=== PATIENT | female | born 1950 | race Caucasian/White ===

== ENCOUNTER → 2018-11-25 14:31 | Outpatient (CLI) | payer MEDICARE, OTHER ==
[2018-11-25 16:30] LABS: ALBUMIN 3.5 g/dL (3.4-5.0); ALKALINE PHOSPHATASE 95 U/L (46-116); ALT (SGPT) 14 U/L (10-68); BILIRUBIN - TOTAL 0.41 mg/dL (0.2-1.3); CALC OSMOLALITY 276 mosm/kg (275-300); CHLORIDE - SERUM 102 mmol/L (98-107); CREATININE - SERUM 0.7 mg/dL (0.6-1.3); GLUCOSE 82 mg/dL (74-106); POTASSIUM - SERUM 3.8 mmol/L (3.5-5.1); PROTEIN - SERUM 7.3 g/dL (6.4-8.2); SODIUM 140 mmol/L (136-145); UREA NITROGEN 9 mg/dL (7-18); eGFR NON AFRICAN AMERICAN 88 mL/min (90-120)
[2018-11-26 11:21] LABS: ANA REFLEX - DIRECT Negative (Negative)
== END | disposition home or self-care (01) ==
LOC: D.LAB 14:31
PROVIDERS: ATTEND Psychiatry & Neurology Neurology
DX: G62.9 Polyneuropathy, unspecified (principal)

== ENCOUNTER → 2019-02-17 10:44 | Outpatient (CLI) | payer MEDICARE, OTHER ==
[2019-02-18 05:11] LABS: VITAMIN D 25 HYDROXY 42.8 ng/mL (30.0-100.0)
[2019-02-19 12:15] LABS: ANGIOTENSIN CONVERTING ENZYME < 15 U/L (14-82)
== END | disposition home or self-care (01) ==
LOC: D.RT 10:44
PROVIDERS: ATTEND Internal Medicine Pulmonary Disease
DX: D86.0 Sarcoidosis of lung (principal)

== ENCOUNTER 2019-05-05 08:00 | Outpatient (CLI) | payer MEDICARE, OTHER | END 2019-05-05 08:30 | disposition home or self-care (01) | LOC: D.MAMMO 08:00 | PROVIDERS: ATTEND Family Medicine | DX: Z12.31 Encounter for screening mammogram for malignant neoplasm of breast (principal) ==

== ENCOUNTER → 2019-06-24 14:03 | Outpatient (CLI) | payer MEDICARE, OTHER | END | disposition home or self-care (01) | LOC: D.CT 06-23 11:30 | PROVIDERS: ATTEND Internal Medicine Pulmonary Disease | DX: D86.9 Sarcoidosis, unspecified (principal) ==

== ENCOUNTER 2020-03-06 12:39 | Inpatient (IN) | payer MEDICARE, OTHER ==
[~2020-03-06] VITALS: Ht 157.5 cm; Wt 104.3 kg
[2020-03-06] MEDS ORDERED: PREDNISONE5 MG PO (12:45)
[2020-03-06] MEDS ORDERED: GABAPENTIN300 MG PO (12:45)
[2020-03-06] MEDS ORDERED: [UNRECOGNIZED DRUG - OTHER] PO (12:46)
[2020-03-06] MEDS ORDERED: LISINOPRIL20 MG PO (12:47)
[2020-03-06] MEDS ORDERED: REQUIP3 MG PO (12:47)
[2020-03-06] MEDS ORDERED: ZOFRAN4 MG PO (12:48)
[2020-03-06] MEDS ORDERED: OMEPRAZOLE20 M1 PO (12:48)
[2020-03-06] MEDS ORDERED: ADVAIR 250-501 EAC1 INH (12:48)
[2020-03-06] MEDS ORDERED: VITAMIN B-121000 MCG (12:48)
[2020-03-06] MEDS ORDERED: ALBUTEROL SULF8.5 GM INH (12:49)
[2020-03-06 13:29] LABS: BILIRUBIN NEGATIVE (NEGATIVE); GLUCOSE NEGATIVE (NEGATIVE); KETONE LARGE mg/dL (NEGATIVE); NITRITE NEGATIVE (NEGATIVE); SPECIFIC GRAVITY 1.005 (1.005-1.020); UROBILINOGEN NORMAL (NORMAL)
[2020-03-06 13:38] LABS: BASOPHILS 0.2 % (0-2); EOSINOPHILS 0.1 % (0-7); HEMATOCRIT 47.1 % (36.0-48.0); HEMOGLOBIN 15.6 g/dL (12-16); IMMATURE GRANULOCYTES 0.5 % (0-5); LYMPHOCYTES 4.6 % (15-50); MCH 32.2 pg (26.0-34.0); MCHC 33.1 g/dL (31.0-37.0); MCV 97.1 fL (80.0-100.0); MEAN PLATELET VOLUME 9.6 fL (7.4-10.4); MONOCYTES 3.2 % (2-11); NEUTROPHILS 91.4 % (40-80); PLATELET COUNT 285 10x3/uL (130-400); RBC 4.85 10x6/uL (4.00-5.40); RDW 14.3 % (11.5-14.5); WBC 9.6 10x3/uL (4.8-10.8)
[2020-03-06 13:46] LABS: ANION GAP 13.9 mmol/L (8-16); CALCIUM 9.2 mg/dL (8.5-10.1); CREATININE - SERUM 0.9 mg/dL (0.6-1.3); POTASSIUM - SERUM 3.9 mmol/L (3.5-5.1)
[2020-03-06 13:52] LABS: ALBUMIN 3.4 g/dL (3.4-5.0); BILIRUBIN - TOTAL 1.37 mg/dL (0.2-1.3); PROTEIN - SERUM 7.7 g/dL (6.4-8.2)
--- NOTE | 2020-03-06 14:40 | NUR ---
PT REPORTS THAT TORADOL DID NOT ALLEVIATE PAIN AT ALL.
[2020-03-06 16:07] VITALS: BP 182/88
--- NOTE | 2020-03-06 16:40 | NUR ---
reports called to socrates becerra at this time.
--- NOTE | 2020-03-06 19:46 | NUR ---
PATIENT C/O NAUSEA. AT BEDSIDE. EXPLAINED TO THE PATIENT AND ABOUT HER ZOFRAN DRIP. ALSO EXPLAINED THAT THE PATIENT HAS PHENERGAN ORDERED IF NEEDED, HOWEVER, IT IS NOT AVAILABLE UNTIL 10PM. PATIENT AND VERBALIZED UNDERSTANDING. PATIENT DENIES OTHER NEEDS AT THIS TIME. BED IN LOWEST POSITION AND CALL LIGHT WITHIN REACH. ENCOURAGED THE PATIENT TO CALL IF SHE HAS NEEDS. WILL CONTINUE TO MONITOR.
[2020-03-06 20:00] VITALS: BP 154/84
[2020-03-06 21:29] VITALS: BP 160/77; BMI 42.1
[2020-03-07] VITALS: BP 110/60
[2020-03-07 04:00] VITALS: BP 126/62
[2020-03-07 05:00] LABS: BASOPHILS 0.1 % (0-2); EOSINOPHILS 0.1 % (0-7); HEMOGLOBIN 12.8 g/dL (12-16); IMMATURE GRANULOCYTES 0.6 % (0-5); LYMPHOCYTES 7.1 % (15-50); MCH 31.3 pg (26.0-34.0); MCV 97.8 fL (80.0-100.0); MEAN PLATELET VOLUME 9.5 fL (7.4-10.4); MONOCYTES 10.4 % (2-11); NEUTROPHILS 81.7 % (40-80); PLATELET COUNT 305 10x3/uL (130-400); RBC 4.09 10x6/uL (4.00-5.40); RDW 14.7 % (11.5-14.5); WBC 7.2 10x3/uL (4.8-10.8)
[2020-03-07 05:33] LABS: ALBUMIN 2.8 g/dL (3.4-5.0); ANION GAP 8.8 mmol/L (8-16); BILIRUBIN - TOTAL 0.94 mg/dL (0.2-1.3); CALCIUM 8.2 mg/dL (8.5-10.1); CARBON DIOXIDE 29.2 mmol/L (21.0-32.0); MAGNESIUM - SERUM 1.8 mg/dL (1.8-2.4); PROTEIN - SERUM 6.4 g/dL (6.4-8.2)
[2020-03-07 08:27] VITALS: BP 129/70
[2020-03-07 12:41] VITALS: BP 107/53
[2020-03-07 15:11] VITALS: Ht 157.5 cm; Wt 104.3 kg
[2020-03-07 16:46] VITALS: BP 92/65
[2020-03-07 20:00] VITALS: BP 128/65
--- NOTE | 2020-03-07 20:02 | NUR ---
PATIENT RESTING IN BED WITH NO S/S OF DISTRESS AND DENIES NEEDS AT THIS TIME. BED IN LOWEST POSITION AND CALL LIGHT WITHIN REACH. ENCOURAGED THE PATIENT TO CALL IF SHE HAS NEEDS. WILL CONTINUE TO MONITOR.
--- NOTE | 2020-03-07 21:08 | NUR ---
ADMINISTERED MEDS PER ORDERS. PATIENT DENIES NEEDS. PATIENT DENIES NAUSEA. WILL CONTINUE TO MONITOR.
[2020-03-08] VITALS: BP 101/47
[2020-03-08 04:00] VITALS: BP 110/58
[2020-03-08 06:52] LABS: BASOPHILS 0.4 % (0-2); EOSINOPHILS 1.7 % (0-7); HEMATOCRIT 37.3 % (36.0-48.0); HEMOGLOBIN 11.8 g/dL (12-16); IMMATURE GRANULOCYTES 0.4 % (0-5); LYMPHOCYTES 14.7 % (15-50); MCH 30.9 pg (26.0-34.0); MCHC 31.6 g/dL (31.0-37.0); MCV 97.6 fL (80.0-100.0); MEAN PLATELET VOLUME 9.2 fL (7.4-10.4); NEUTROPHILS 74.8 % (40-80); PLATELET COUNT 245 10x3/uL (130-400); RBC 3.82 10x6/uL (4.00-5.40)
[2020-03-08 06:56] LABS: WBC 5.2 10x3/uL (4.8-10.8)
[2020-03-08 07:11] LABS: ALBUMIN 2.6 g/dL (3.4-5.0); ANION GAP 9.9 mmol/L (8-16); BILIRUBIN - TOTAL 0.5 mg/dL (0.2-1.3); CALCIUM 7.9 mg/dL (8.5-10.1); CARBON DIOXIDE 25.7 mmol/L (21.0-32.0); CREATININE - SERUM 0.9 mg/dL (0.6-1.3); MAGNESIUM - SERUM 1.8 mg/dL (1.8-2.4); PHOSPHOROUS 3.2 mg/dL (2.5-4.9); POTASSIUM - SERUM 3.6 mmol/L (3.5-5.1); PROTEIN - SERUM 5.7 g/dL (6.4-8.2)
--- NOTE | 2020-03-08 08:30 | NUR ---
PATIENT AWAKE AND ALERT. REQUESTING HELP WITH BED. I ASSISTED. CL IN REACH. NO FURTHER NEEDS AT THIS TIME. WCTM
[2020-03-08 08:41] VITALS: BP 107/51
[2020-03-08] MEDS ORDERED: PROTONIX40 MG PO (10:37)
[2020-03-08] MEDS ORDERED: LEVOFLOXACIN500 MG PO (10:37)
[2020-03-08] MEDS ORDERED: FLAGYL500 MG PO (10:38)
[2020-03-08] MEDS ORDERED: ZOFRAN ODT4 MG/UDTAB PO (10:39)
[2020-03-08 12:07] VITALS: BP 118/56
--- NOTE | 2020-03-08 12:10 | MORECARE ---
CASE MANAGEMENT DISCHARGE SUMMARY PATIENT: DILLON MORENO UNIT: [id number] ADM DATE: 03/06/20 AGE: 69 : 49 SEX: F ROOM/BED: D.2205 AUTHOR: ALANA SANCHEZ PHYSICIAN: REFERRING PHYSICIAN: YESENIA ALVAREZ MD DATE OF SERVICE: 03/08/20 Discharge Plan Patient Name: DILLON MORENO [facility] [facility] 1950 Planned Disposition: Home or Self Care Anticipated Discharge Date: Discharge Date: Expected LOS: Initial Reviewer: [email or web address] Initial Review Date: 03/06/2020 Generated: 03/08/20 1:09 pm DCPIA - Discharge Planning Initial Assessment Updated by [email or web address]: Tiffany Swartz on 03/08/20 12:08 pm * Is the patient Alert and Oriented? Yes * PCP BENEDICTO * Pharmacy [facility] [place] * Preadmission Environment Home with Family * ADLs Independent * Equipment Walker * List name and contact numbers for known caregivers / representatives who currently or will assist patient after discharge: SHELDON [phone] * Verbal permission to speak to the caregivers and representatives has been obtained from the patient. N/A * Community resources currently utilized None * Additional services required to return to the preadmission environment? No * Can the patient safely return to the preadmission environment? Yes * Has this patient been hospitalized within the prior 30 days at any hospital? No Patient Name: DILLON MORENO Page 16926 at 1210 All edits/amendments must be made on the electronic document DICTATION DATE: 03/08/20 1209 QUALITY ENG: FARIDA 03/08/20 1209 RPT#: [id number] DC DATE: STATUS: ADM IN [facility] [address] [place] [address] END OF REPORT
--- NOTE | 2020-03-08 12:19 | MORECARE ---
CASE MANAGEMENT DISCHARGE SUMMARY PATIENT: DILLON MORENO UNIT: [id number] ADM DATE: 03/06/20 AGE: 69 : 49 SEX: F ROOM/BED: D.2205 AUTHOR: LAURADOC PHYSICIAN: REFERRING PHYSICIAN: YESENIA ALVAREZ MD DATE OF SERVICE: 03/08/20 Discharge Plan Patient Name: DILLON MORENO Facility: [facility]:[place] : 1950 Planned Disposition: Home or Self Care Anticipated Discharge Date: Discharge Date: Expected LOS: Initial Reviewer: [email or web address] Initial Review Date: 03/06/2020 Generated: 03/08/20 1:18 pm Comments DCP- Discharge Planning Updated by [email or web address]: Tiffany Swartz on 03/08/20 11:[address] Patient Name: DILLON MORENO Admission Status: ER Accout number: [id number] Admission Date: 03-06-2020 : 1950 Admission Diagnosis:CONSTIPATION, UNSPECIFIED Attending: ANTONIO, Current LOS: 2 Anticipated DC Date: Planned Disposition: Home or Self Care Primary Insurance: MEDICARE A & B Discharge Planning Comments: CM met with patient to complete initial dc planning assessment. CM educated patient on the CM role and verbal consent given by patient to complete assessment. Patient lives at home with her spouse where she is independent with her care. At discharge patient plans to return home and feels this is a safe discharge. 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 CM discussed availability of home health, rehab services, and medical equipment. She has a walker that she uses when she is out of her house. Patient denied known discharge needs at this time. CM will continue to follow and will assist as needed with dc plans/needs. Destination Sign Repairer: Tiffany Swartz DCPIA - Discharge Planning Initial Assessment Updated by [email or web address]: Tiffany Swartz on 03/08/20 12:08 pm * Is the patient Alert and Oriented? Yes * PCP BENEDICTO * Pharmacy [facility] [place] * Preadmission Environment Home with Family * ADLs Independent * Equipment Walker * List name and contact numbers for known caregivers / representatives who currently or will assist patient after discharge: SHELDON [phone] * Verbal permission to speak to the caregivers and representatives has been obtained from the patient. N/A * Community resources currently utilized None * Additional services required to return to the preadmission environment? No * Can the patient safely return to the preadmission environment? Yes * Has this patient been hospitalized within the prior 30 days at any hospital? No Last DP export: 03/08/20 11:10 a Patient Name: DILLON MORENO Page [phone] at 1219 All edits/amendments must be made on the electronic document DICTATION DATE: 03/08/208 SAP BI ARCHITECT: FARIDA 03/08/208 RPT#: [id number] DC DATE: STATUS: ADM IN [facility] [address] [place] [address] END OF REPORT
--- NOTE | 2020-03-08 14:18 | NUR ---
IV REMOVED FROM LEFT WRIST WITH TIP INTACT. PATIENT DC HOME WITH ALL BELONGINGS.
--- NOTE | 2020-03-09 09:57 | MORECARE ---
CASE MANAGEMENT DISCHARGE SUMMARY PATIENT: DILLON MORENO UNIT: [id number] ADM DATE: 03/06/20 AGE: 69 : 49 SEX: F ROOM/BED: D.2205 AUTHOR: LAURADOC PHYSICIAN: REFERRING PHYSICIAN: YESENIA ALVAREZ MD DATE OF SERVICE: 03/09/20 Discharge Plan Patient Name: DILLON MORENO Facility: [facility]:[place] : 1950 Planned Disposition: Home or Self Care Anticipated Discharge Date: Discharge Date: 03/08/2020 Expected LOS: Initial Reviewer: [email or web address] Initial Review Date: 03/06/2020 Generated: 03/09/20 10:56 am Comments DCP- Discharge Planning Updated by [email or web address]: Tiffany Swartz on 03/08/20 11:[address] Patient Name: DILLON MORENO Admission Status: ER Accout number: [id number] Admission Date: 03-06-2020 : 1950 Admission Diagnosis:CONSTIPATION, UNSPECIFIED Attending: ANTONIO, Current LOS: 2 Anticipated DC Date: Planned Disposition: Home or Self Care Primary Insurance: MEDICARE A & B Discharge Planning Comments: CM met with patient to complete initial dc planning assessment. CM educated patient on the CM role and verbal consent given by patient to complete assessment. Patient lives at home with her spouse where she is independent with her care. At discharge patient plans to return home and feels this is a safe discharge. 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 CM discussed availability of home health, rehab services, and medical equipment. She has a walker that she uses when she is out of her house. Patient denied known discharge needs at this time. CM will continue to follow and will assist as needed with dc plans/needs. User Interface Developer: Tiffany Swartz DCPIA - Discharge Planning Initial Assessment Updated by [email or web address]: Tiffany Swartz on 03/08/20 12:08 pm * Is the patient Alert and Oriented? Yes * PCP BENEDICTO * Pharmacy [facility] [place] * Preadmission Environment Home with Family * ADLs Independent * Equipment Walker * List name and contact numbers for known caregivers / representatives who currently or will assist patient after discharge: SHELDON [phone] * Verbal permission to speak to the caregivers and representatives has been obtained from the patient. N/A * Community resources currently utilized None * Additional services required to return to the preadmission environment? No * Can the patient safely return to the preadmission environment? Yes * Has this patient been hospitalized within the prior 30 days at any hospital? No Last DP export: 03/08/20 11:19 a Patient Name: DILLON MORENO Page 46560 at 0957 All edits/amendments must be made on the electronic document DICTATION DATE: 03/09/20955 MANAGER FASHION: DM 03/09/2056 RPT#: [id number] DC DATE:03/08/20 STATUS: DIS IN [facility] [address] [place] [address] END OF REPORT
== END 2020-03-08 16:04 | disposition home or self-care (01) | DRG 392 ==
LOC: D.ER 12:39 → D.MS 16:18 → D.SDCHOLD 03-07 13:39 → D.MS 03-07 13:39
PROVIDERS: Family Medicine; ADMIT Family Medicine; ATTEND Family Medicine
DX: K57.92 Diverticulitis of intestine, part unspecified, without perforation or abscess without bleeding (principal); K59.00 Constipation, unspecified; K21.9 Gastro-esophageal reflux disease without esophagitis; G62.9 Polyneuropathy, unspecified; G25.81 Restless legs syndrome; J45.909 Unspecified asthma, uncomplicated

== ENCOUNTER 2020-03-12 03:20 | Inpatient (IN) | payer MEDICARE, OTHER ==
[~2020-03-12] VITALS: Ht 157.5 cm; Wt 104.3 kg
--- NOTE | ~2020-03-12 | HEMODYNAMI ---
PATIENT:DILLON MORENO MEDICAL RECORD: [id number] : [birth year] LOCATION:[facility].2216 ADMISSION DATE: 03/12/20 Generatedon:03/13/202010:49 Patient name: DILLON MORENO Patient #: [id number] SSN: DO B: 1950 Date of study: 03/13/2020 Page: Of Hemodynamic Procedure Report Patient Data Patient Demographics Procedure consent was obtained First Name: DILLON Gender: Female Last Name: TIFFANIE : 1950 Patient #: [id number] Age: 69 year(s) Race: Unknown Additional ID: [id number] Contact details [address]: [address] [place] [address] State: [place] City: [place] Zip code: [address] Past Medical History Allergies Allergen Reaction Date Comments Reported Sulfa drugs 03/13/2020 Admission Admission Data Admission Date: 03/12/2020 Admission Time: 12:55 Room #: D.2216 Lab Results Lab Result Date: 03/13/2020 Lab Result Time: 0:00 Biochemistry Name Units Result Min Max Creatinine mg/dl 1 --(--*-)-- 0.6 1.3 CBC Name Units Result Min Max Hematocrit % 39 *-(----)-- 42 54 Hemoglobin g/dl 12 *-(----)-- 13.5 17.5 Procedure Procedure Types Cath Procedure Diagnostic Procedure LHC C w/Coronaries Procedure Description Procedure Date Procedure Date: 03/13/2020 Procedure Start Time: 10:36 Procedure End Time: 10:47 Procedure Staff Name Function Rocky Coburn MD Performing Physician Ana Canas RT Monitor Martine Eaton RT Monitor Deja Alegre RT Scrub Gauri Reyes RN Nurse Procedure Data Cath Procedure Fluoroscopy Diagnostic fluoroscopy Total fluoroscopy Time: 1.1 time: 1.1 min min Diagnostic fluoroscopy Total fluoroscopy dose: 429 dose: 429 mGy mGy Contrast Material Contrast Material Type Amount (ml) Isovue 300 52 Entry Location Entry Primary Successful Side Size Upsize Upsize Entry Closure Succes sful Closure Location (Fr) 1 (Fr) 2 (Fr) Remarks Device Remarks Femoral Right 5 Fr Exoseal artery Estimated blood loss: 10 ml Diagnostic catheters Device Type Used For End Catheter Placement MULTIPACK JL 4.0 5Fr Procedure catheter MULTIPACK 3DRC 5Fr Procedure catheter MULTIPACK Pigtail 5 Fr Ventriculography catheter Procedure Complications No complications Procedure Medications Medication Administration Route Dosage 0.9% NaCl I.V. 100 ml/hr Oxygen etCO2 Nasal cannula 2 l/min Lidocaine 2% added to field 20 Heparin Flush Bag added to field 2 bags (1000units/500ml NS) Versed I.V. 2 mg Fentanyl I.V. 50 mcg Fentanyl I.V. 50 mcg Hemodynamics Rest Heart Rate: 0 (bpm) Pressure Samples Time Site Value (mmHg) Purpose Heart Use Rate(bpm) 10:42 LV 140/15,15 Snapshot 89 10:43 AO 150/80(114) Pullback 89 Gradients Valve Time Site Site 2 Mean SEP/DFP Peak To Heart Use 1 (mmHg) (sec/min) Peak Rate (mmHg) (bpm) Aortic 10:43 LV AO 89 150/80(114) Snapshots Pre Cath Intra NCS Post Cath Vital Signs Time Heart Resp SPO2 etCO2 NIBP (mmHg) Rhythm Pain Sedation Rate (ipm) (%) (mmHg) Status Level (bpm) 10:27:08 101 11 98 45.5 155/81(119) NSR 0 (11) 10(A) , No pain 10:31:40 98 20 97 35.8 143/85(119) NSR 0 (11) 10(A) , No pain 10:36:07 90 19 97 44.1 140/83(126) NSR 0 (11) 10(A) , No pain 10:40:33 85 13 98 41 143/79(109) NSR 0 (11) 10(A) , No pain 10:44:59 88 13 96 0 150/85(126) NSR 0 (11) 10(A) , No pain Medications Time Medication Route Dose Verified Delivered Reason Notes Eff ectiveness by by 10:24:01 0.9% NaCl I.V. 100 Rocky Chesteryla used for ml/hr IrishJanusz Reyes procedure MD DONAHUE 10:24:07 Oxygen etCO2 2 Rocky Gauri used for Nasal l/min [facility] procedure cannula MD RN 10:24:13 Lidocaine 2% added 20ml Rocky Hidalgo for local to vial [facility] anesthetic field MD CASTILLO 10:24:17 Heparin Flush added 2 Rocky Hidalgo used for Bag to bags [facility] procedure (1000units/500ml field MD CASTILLO NS) 10:34:36 Versed I.V. 2 mg Rocky Gauri for IrishJanusz Reyes sedation RN 10:34:46 Fentanyl I.V. 50 Rocky Gauri for [facility] Eric sedation RN 10:40:10 Fentanyl I.V. 50 Rocky Gauri for [facility] sedation welding machine operator resistance Log Time Note 9:59:59 Informed consent obtained and on chart 10:00:12 Procedure Status Urgent Heart Cath (IP). 10:00:18 Ana Canas RT(R) sent for patient. Start room use. 10:00:19 Time tracking: Regular hours (M-F 7:00 - 5:00) 10:00:22 Plan of Care:Hemodynamics will remain stable., Cardiac rhythm will remain stable., Comfort level will be maintained., Respiratory function will remain adequate., Patient/ family verbilizes understanding of procedure., Procedure tolerated without complication., Recovers from procedure without complications.. 10:18:27 Patient received from Med/Surg to CCL 1 Alert and oriented. Tansferred to table in Supine position. 10:19:08 H&P Date Dictated: 03/13/2020 Within 30 days and on chart.. 10:19:19 ACC Patient presents with Unstable Angina CCS Anginal Class 2--Slight limitation of ordinary activity. 10:19:23 ACCPatient has been prescribed/administered the following anti-anginal medication within the last 2 weeks: None 10:19:27 Full Disclosure recording started 10:19:32 Warm blankets applied, and jenny hugger turned on for patient comfort. 10:19:32 Correct patient and procedure confirmed by team. 10:19:34 ECG and BP/O2 sat monitors applied to patient. 10:19:35 Pre-procedure instructions explained to patient. 10:19:36 Pre-op teaching completed and patient verbalized understanding. 10:19:43 Family in waiting room. 10:19:45 Patient NPO since Midnight. 10:19:54 Patient allergic to Sulfa drugs 10:19:57 Is the patient allergic to Iodine/contrast media? No. 10:19:59 Was the patient premedicated? N/A 10:20:01 Is patient on blood thinner?No 10:20:04 ACC The patient was administered the following blood thiners within the last 24 hours: None 10:20:18 Patient diabetic? No. 10:20:20 If diabetic: On Metformin? N/A 10:20:24 Patient not . Patient is over age 55. 10:20:29 Previous problem with sedation/anesthesia? No ? 10:20:31 Snore? Yes 10:20:32 Sleep apnea? No 10:20:34 Deviated septum? No 10:20:35 Opens mouth fully? Yes 10:20:36 Sticks out tongue? Yes 10:20:39 Airway obstruction? No ? 10:20:43 Dentures? No ? 10:20:47 Pre procedure: right dorsailis pedis pulse 2+ Normal; easily identifiable; not easily obliterated 10:20:51 Patient pain scale 0/10 ?. 10:21:02 IV patent on arrival in right hand with 0.9% NaCl at [facility]. 10:22:07 Lab Result : Hemoglobin 12 g/dl 10:22:07 Lab Result : Creatinine 1 mg/dl 10:22:07 Lab Result : Hematocrit 39 % 10:22:12 Lab results completed and on chart. 10:22:18 Stress Test: no; N/A ? 10:22:25 Right groin area was prepped with chlora-prep and draped in sterile fashion 10:22:27 Sharps counted by scrub and verified by R.N. 10:22:27 Alarms reviewed by R. N. 10:23:45 Diagnostic Cath Status : Urgent 10:24:01 0.9% NaCl 100 ml/hr I.V. was administered by Gauri Reyes RN; used for procedure; Verbal order read back and verified. 10:24:07 Oxygen 2 l/min etCO2 Nasal cannula was administered by Gauri Reyes RN; used for procedure; Verbal order read back and verified. 10:24:13 Lidocaine 2% 20ml vial added to field was administered by Rocky Coburn MD; for local anesthetic; Verbal order read back and verified. 10:24:17 Heparin Flush Bag (1000units/500ml NS) 2 bags added to field was administered by Rocky Coburn MD; used for procedure; Verbal order read back and verified. 10::43 Vital chart was started 10::18 Baseline sample Acquired. 10::28 Rhythm: sinus rhythm 10::31 Baseline sample Acquired. 10:33:03 Physician arrived 10:33:05 --------ALL STOP TIME OUT------ 10:33:06 Final Timeout: patient, procedure, and site verified with staff and physician. All members of the team are in agreement. 10:33:08 Right groin site verified by team. 10:33:13 Fire Safety Assessment: A--An alcohol-based skin anteseptic being used preoperatively., C--Open oxygen or nitrous oxide is being used., D--An ESU, laser, or fiber-optic light is being used. 10:33:16 Physical assessment completed. ASA score P 2 - A patient with mild systemic disease as per Rocky Coburn MD. 10:33:43 3a) 45-59 Moderately reduced kidney function. 10:34:00 Maximum allowable contrast dose (3.7 X eGFR X 0.75)161 ml. 10:34:06 Sedation plan: IV Moderate Sedation Medication:Versed, Fentanyl 10:34:36 Versed 2 mg I.V. was administered by Gauri Reyes RN; for sedation; Verbal order read back and verified. 10:34:46 Fentanyl 50 mcg I.V. was administered by Gauri Reyes RN; for sedation; Verbal order read back and verified. 10:35:18 Use device set Femoral Dx 10:36:05 Procedure started. 10:36:12 ACIST Syringe (60591) opened to sterile field. 10:36:12 Bag Decanter () opened to sterile field. 10:36:13 Medline Cath Pack ([id number]) opened to sterile field. 10:36:14 ACIST Hand Control (31455) opened to sterile field. 10:36:14 ACIST Manifold (88646) opened to sterile field. 10:36:15 DIAGNOSTIC Multipack 5Fr catheter set ([id number]) opened to sterile field. 10:36:16 Tegaderm 4 x 4 (1626W) opened to sterile field. 10:36:18 SHEATH 5FR Orient (EZD211) opened to sterile field. 10:36:20 EMERALD Guide Wire (505-127) opened to sterile field. 10:36:25 Local anesthetic to right femoral artery with Lidocaine 2% by Rocky Coburn MD.INITIAL ACCESS ONLY 10:37:03 A 5 Fr sheath was inserted into the Right Femoral artery 10:37:10 j wire advanced. 10:38:47 A MULTIPACK JL 4.0 5Fr catheter was advanced over the wire and used for Procedure. 10:38:56 LCA angiography performed. 10:39:52 Catheter removed. 10:40:02 A MULTIPACK 3DRC 5Fr catheter was advanced over the wire and used for Procedure. 10:40:04 RCA angiography performed. 10:40:10 Fentanyl 50 mcg I.V. was administered by Gauri Reyes RN; for sedation; Verbal order read back and verified. 10:41:34 Catheter removed. 10:41:43 A MULTIPACK Pigtail 5 Fr catheter was advanced over the wire and used for Ventriculography. 10:41:53 LV angiography performed. 10:41:59 LV gram done using BRAY 10:42:18 EF : 55 % 10:42:58 Catheter removed. 10:43:01 EXOSEAL 5Fr (EX500) opened to sterile field. 10:43:25 Sheath removed intact; hemostasis achieved with Exoseal to the Right Femoral artery. 10:43:47 Procedure ended.(Physican Out) 10:44:19 Fluoroscopy time 01.10 minutes. 10:44:23 Fluoroscopy dose: 429 mGy 10:44:23 Flurop Dose total: 429 10:44:29 Dose Area Product 21033 mGy/cm. 10:44:34 Contrast amount:Isovue 300 52ml. 10:44:40 Maximum allowable dose exceeded? No. 10:44:42 Sharps counted by scrub and verified by R.N. 10:44:44 Insertion/operative site no bleeding no hematoma. 10:44:49 Post-op/insertion site Right Femoral artery dressed using a 4 x 4 and Tegaderm. 10:44:51 Post Procedure Pulses reassessed and unchanged 10:45:00 Post-procedure physical assessment completed. ASA score P 2 - A patient with mild systemic disease as per Rocky Coburn MD. 10:45:03 Post procedure rhythm: sinus rhythm 10:45:12 Estimated blood loss: 10 ml 10:45:24 Post procedure instruction explained to patient.Patient verbalizes understanding. 10:45:50 Procedure and supply charges have been captured, reviewed, submitted and are correct. 10:46:18 Procedure Complication : No complications 10:46:21 Vital chart was stopped 10:46:23 [facility] Findings: mild to moderate CAD (<70%) 10:46:39 Operative report dictated upon procedure completion. 10:46:40 See physician's report for complete and final results. 10:46:46 Report given to CVICU. 10:47:01 Patient transfered to CVICU with Bed. 10:47:04 Procedure ended. 10:47:04 Full Disclosure recording stopped 10:47:07 End room use (Document Last) Device Usage Item Name Manufacture Quantity Catalog Hospital Part Current Minimal L ot# / Number Charge Number Stock Stock Serial# Code ACIST Acist 1 33091 [id number] 841153 048406 20 Syringe Medical (25976) Systems Inc Bag Microtek 1 621986 77924 750967 5 Decanter Medical Inc. () Medline Medline 1 [id number] 103343 86939 024444 5 Cath Pack ([id number]) ACIST Hand Acist 1 15467 730098 979767 239702 5 Control Medical (38273) Systems Inc ACIST Acist 1 77475 888465 532292 372692 5 Manifold Medical (44736) Systems Inc DIAGNOSTIC Cardinal 1 [id number] 114273 61195 425486 30 Multipack Health 5Fr catheter set (YA0130) Tegaderm 4 3M 1 1626W 149366 629725 027238 5 x 4 (1626W) SHEATH 5FR Terumo 1 [id number] 438462 586819 600988 5 Orient (FGW812) EMERALD Cardinal 1 502-455 835469 956992 157545 5 Guide Wire [facility] (502-455) MULTIPACK Cardinal 1 741784 5 JL 4.0 5Fr Health catheter MULTIPACK Cardinal 1 977364 5 3DRC 5Fr Health catheter MULTIPACK Cardinal 1 387634 5 Pigtail 5 Health Fr catheter EXOSEAL 5Fr Cardinal 1 EX500 449468 605594 030402 10 (EX500) Health Signature Audit [place]lyn Stage Time Signature Unsigned Intra-Procedure 03/13/2020 Martine Eaton 10:47:52 AM RT(R) Intra-Procedure 03/13/2020 Gauri Reyes 10:48:54 AM RN Intra-Procedure 03/13/2020 Rocky Paul 10:49:53 AM Janusz CASTILLO [facility] [address] [place] [address]
[~2020-03-12 03:20] MED LIST: ADVAIR 250-501 EAC1 INH; ALBUTEROL SULF8.5 GM INH; FLAGYL500 MG PO; GABAPENTIN300 MG PO; LEVOFLOXACIN500 MG PO; LISINOPRIL20 MG PO; OMEPRAZOLE20 M1 PO; PREDNISONE5 MG PO; PROTONIX40 MG PO; REQUIP3 MG PO; VITAMIN B-121000 MCG PO; ZOFRAN ODT4 MG/UDTAB PO; ZOFRAN4 MG PO; [UNRECOGNIZED DRUG - OTHER] PO
[2020-03-12] MEDS ORDERED: OMEPRAZOLE20 M1 PO (04:21)
[2020-03-12] MEDS ORDERED: [UNRECOGNIZED DRUG - OTHER] (04:23)
[2020-03-12 04:34] LABS: BASOPHILS 0.3 % (0-2); EOSINOPHILS 0.7 % (0-7); HEMATOCRIT 41.7 % (36.0-48.0); HEMOGLOBIN 12.9 g/dL (12-16); IMMATURE GRANULOCYTES 0.4 % (0-5); LYMPHOCYTES 5.4 % (15-50); MCHC 30.9 g/dL (31.0-37.0); MCV 100.2 fL (80.0-100.0); MEAN PLATELET VOLUME 9.5 fL (7.4-10.4); MONOCYTES 8.8 % (2-11); NEUTROPHILS 84.4 % (40-80); RBC 4.16 10x6/uL (4.00-5.40); RDW 14.6 % (11.5-14.5); WBC 7.4 10x3/uL (4.8-10.8)
[2020-03-12 04:35] LABS: PLATELET COUNT 337 10x3/uL (130-400)
[2020-03-12 04:43] LABS: APTT 25.7 SECONDS (22.8-39.4); INR 0.93 (0.85-1.17); PROTIME 12.5 SECONDS (11.6-15.0)
[2020-03-12 04:52] LABS: CALC OSMOLALITY 275 mosm/kg (275-300); CALCIUM 8.5 mg/dL (8.5-10.1); CARBON DIOXIDE 31.4 mmol/L (21.0-32.0); CHLORIDE - SERUM 102 mmol/L (98-107); GLUCOSE 125 mg/dL (74-106); SODIUM 138 mmol/L (136-145); UREA NITROGEN 11 mg/dL (7-18); eGFR NON AFRICAN AMERICAN 58 mL/min (90-120)
--- NOTE | 2020-03-12 05:00 | NUR ---
PT BACK FROM ORDERED CT AT THIS TIME.
[2020-03-12 05:07] LABS: ALKALINE PHOSPHATASE 67 U/L (30-120); ALT (SGPT) 20 U/L (10-68); CKMB 1.9 U/L (0.0-3.6); CREATINE KINASE 76 UL (21-215); PROTEIN - SERUM 6.4 g/dL (6.4-8.2)
[2020-03-12 05:08] LABS: TROPONIN-I < 0.017 ng/mL (0.000-0.060)
--- NOTE | 2020-03-12 09:04 | NUR ---
DR PALMER CALLED, STATES THAT HE IS NOT CULTURAL HISTORIAN THIS WEEK END BUT ORDERED MRI CAROTIDS AND ECH
--- NOTE | 2020-03-12 09:08 | NUR ---
RESTING IN BED, NO DISTRESS NOTED, STATES THAT STROKE SYMPTOMS HAVE DISAPEARED
[2020-03-12 09:42] VITALS: BP 144/76
[2020-03-12] MEDS ORDERED: CYANOCOBAL1000 MCG/4 SC (10:09)
[2020-03-12 10:36] VITALS: BMI 42.1
--- NOTE | 2020-03-12 13:09 | NUR ---
PT TAKEN TO MRI
[2020-03-12 13:11] VITALS: BP 153/77
[2020-03-12 15:15] VITALS: BP 174/82; Ht 157.5 cm; Wt 104.3 kg
[2020-03-12 17:05] VITALS: BP 150/79
[2020-03-12 17:20] LABS: CKMB 1.4 U/L (0.0-3.6); CREATINE KINASE 32 UL (21-215)
[2020-03-12 17:31] LABS: TROPONIN-I < 0.017 ng/mL (0.000-0.060)
[2020-03-12 20:15] VITALS: BP 122/65
--- NOTE | 2020-03-12 20:30 | NUR ---
WATCHING TV QUEITLY WITH NO DISTRESS NOTED. RESP UNALBORED. SL TO RFA INTACT WITHOUT REDNESS OR EDEMA NOTED. NO COMPALITNS VOICED
[2020-03-12 20:47] LABS: CKMB 1.1 U/L (0.0-3.6); CREATINE KINASE 37 UL (21-215); TROPONIN-I < 0.017 ng/mL (0.000-0.060)
[2020-03-13] VITALS (13 sets, daily range): BP systolic 117–150; BP diastolic 58–86
[2020-03-13 02:23] LABS: CREATINE KINASE 77 UL (21-215)
[2020-03-13 02:25] LABS: TROPONIN-I 4.335 ng/mL (0.000-0.060)
--- NOTE | 2020-03-13 03:12 | NUR ---
TROPONIN 4.335. RESULTS CALLED TO ADRIANA ORONA. CARDIOLOGY CONSULTED. DR VERGARA NOTIFIED. ORDERS RECEIVED TO KEEP PATIENT NPO AND HE WOULD SEE PATIENT IN AM.
--- NOTE | 2020-03-13 03:44 | NUR ---
I have reviewed this patient and I concur with the Shift Assessment completed by the Licensed Practical Nurse today this shift.
[2020-03-13 08:41] LABS: CREATINE KINASE 31 UL (21-215); TROPONIN-I < 0.017 ng/mL (0.000-0.060)
[2020-03-13 09:32] LABS: BASOPHILS 0.7 % (0-2); EOSINOPHILS 20.9 % (0-7); HEMATOCRIT 39.6 % (36.0-48.0); HEMOGLOBIN 12.1 g/dL (12-16); IMMATURE GRANULOCYTES 0.4 % (0-5); LYMPHOCYTES 31.9 % (15-50); MCHC 30.6 g/dL (31.0-37.0); MEAN PLATELET VOLUME 9.4 fL (7.4-10.4); MONOCYTES 4.7 % (2-11); NEUTROPHILS 41.4 % (40-80); RBC 4.48 10x6/uL (4.00-5.40); RDW 16.5 % (11.5-14.5); WBC 8.1 10x3/uL (4.8-10.8)
[2020-03-13 09:33] LABS: MCV 88.4 fL (80.0-100.0); PLATELET COUNT 470 10x3/uL (130-400)
--- NOTE | 2020-03-13 10:08 | NUR ---
RESTING IN BED, NO DISTRESS NOTED, NPO, CONT TO MONITOR LABS
--- NOTE | 2020-03-13 10:14 | NUR ---
pt taken to laboratory immunologist per bed, sl in place, consents on chart
[2020-03-13 10:41] LABS: ALT (SGPT) 15 U/L (10-68); CALC OSMOLALITY 275 mosm/kg (275-300); CALCIUM 8.5 mg/dL (8.5-10.1); CARBON DIOXIDE 32.5 mmol/L (21.0-32.0); CHLORIDE - SERUM 102 mmol/L (98-107); CHOL - HDL RATIO 2.5 ratio (2.3-4.1); CHOLESTEROL, TOTAL 191 mg/dL (0-200); CREATININE - SERUM 0.8 mg/dL (0.6-1.3); GLUCOSE 121 mg/dL (74-106); HDL CHOLESTEROL 78 mg/dL (32-96); LDL CHOLESTEROL 63 mg/dL (0-100); LDL-HDL RATIO 0.8 ratio (1.5-3.5); POTASSIUM - SERUM 3.8 mmol/L (3.5-5.1); SODIUM 138 mmol/L (136-145); TRIGLYCERIDE 252 mg/dL (30-200); UREA NITROGEN 11 mg/dL (7-18); eGFR NON AFRICAN AMERICAN 75 mL/min (90-120)
--- NOTE | 2020-03-13 11:00 | NUR ---
REC'D FROM PIPE ASSEMBLY WORKER VIA BED. AROUSES TO VERBAL STIMULI. CONNECTED TO MONITOR AND VS OBTAINED. O2 VIA NC @ 2LPM. IV L WRIST NS @ 100CC/HR. LUIS PEDAL PULSES STRONG. R GROIN SITE SOFT. NO BLEEDING NOTED. DENIES PAIN.
--- NOTE | 2020-03-13 16:11 | NUR ---
1300: UP TO BEDSIDE COMMODE. VOIDED APPROX 300CC CLEAR YELLOW URINE. R GROIN SITE REMAINS SOFT. DENIES ANY PAIN. 1500: UP TO BATHROOM. 1510: REC'D OK FROM DR. MOREIRA PATIENT MAY MOVE TO DEPUTY DISTRICT CUSTOMS DIRECTOR WHEN BED BECOMES AVAILABLE.
--- NOTE | 2020-03-13 17:21 | NUR ---
REPORT CALLED TO RECEIVING NURSE TODD.
--- NOTE | 2020-03-13 17:32 | NUR ---
TRANSFERRED TO ROOM 2120 VIA WHEELCHAIR BY DEZ DONAHUE.
--- NOTE | 2020-03-13 17:40 | NUR ---
TRANSFER FROM CVICU BY W/C. CALL LIGHT IN REACH. WILL CONT. PLAN OF CARE.
--- NOTE | 2020-03-13 19:30 | NUR ---
REPORT RECIEVED AND INITIAL ROUNDS COMPLETED. PT UP AND ABOUT IN ROOM. ALERT/ORIENTED. SR PER TELEMETRY. NONLABORED RESPIRATIONS ON ROOM AIR. PIV SL TO LEFT WRIST. ASSESSED RIGTH GROIN, SITE C/D/I WITH NO BLEEDING OR SWELLING. GOOD PEDAL PULSES. PT REQUESTING FOOD TO EAT. SANDWICH TRAY PROVIDED. CALL LIGHT IN REACH. CPOC.
--- NOTE | 2020-03-13 23:17 | NUR ---
ALL BEDTIME MEDS GIVEN. PT VOICING NO PAIN OR DISCOMFORT. SR PER TELEMETRY. CPOC. DENIES ANY "EPISODES" THAT SHE SAYS SHE SOMETIMES EXPERIENCES AT HOME WHERE SHE SUDDENLY CANNOT RECALL ANYTHING AND "GOES BLANK". MONITOR, CPOC.
[2020-03-14 00:30] VITALS: BP 119/55
[2020-03-14 05:00] VITALS: BP 128/64
[2020-03-14 06:16] LABS: BASOPHILS 0.2 % (0-2); EOSINOPHILS 1.6 % (0-7); HEMATOCRIT 39.5 % (36.0-48.0); HEMOGLOBIN 12.1 g/dL (12-16); IMMATURE GRANULOCYTES 0.4 % (0-5); LYMPHOCYTES 14.7 % (15-50); MCH 30.9 pg (26.0-34.0); MCHC 30.6 g/dL (31.0-37.0); MEAN PLATELET VOLUME 9.5 fL (7.4-10.4); MONOCYTES 10.9 % (2-11); NEUTROPHILS 72.2 % (40-80); RBC 3.92 10x6/uL (4.00-5.40); RDW 15.1 % (11.5-14.5)
[2020-03-14 06:17] LABS: MCV 100.8 fL (80.0-100.0); PLATELET COUNT 280 10x3/uL (130-400)
[2020-03-14 06:25] LABS: CALC OSMOLALITY 276 mosm/kg (275-300); CALCIUM 8.5 mg/dL (8.5-10.1); CARBON DIOXIDE 33.9 mmol/L (21.0-32.0); CHLORIDE - SERUM 103 mmol/L (98-107); CREATININE - SERUM 0.7 mg/dL (0.6-1.3); GLUCOSE 98 mg/dL (74-106); PHOSPHOROUS 4.1 mg/dL (2.5-4.9); POTASSIUM - SERUM 4.3 mmol/L (3.5-5.1); SODIUM 138 mmol/L (136-145); eGFR NON AFRICAN AMERICAN 88 mL/min (90-120)
[2020-03-14 06:31] LABS: UREA NITROGEN 14 mg/dL (7-18)
[2020-03-14 08:30] VITALS: BP 145/72
--- NOTE | 2020-03-14 10:38 | NUR ---
Rehab Prescreening Consult recieved and the chart has been reviewed. She has a pending PT eval from 03/13/20. Rehab will follow to see how she participates with therapy. Celina Cuellar RN Clinical Liaison, Rehab
--- NOTE | 2020-03-14 11:22 | EC ---
PATIENT:DILLON MORENO DATE OF SERVICE: 03/12/20 SEX: F MEDICAL RECORD: [id number] DATE OF : [birth year] LOCATION:D.M2 D.212 AGE OF PATIENT: 69 ADMISSION DATE: 03/12/20 REFERRING PHYSICIAN: INTERPRETING PHYSICIAN: JOSSIE VERGARA MD ECHOCARDIOGRAM REPORT ECHO CHARGES 4 ECHO COMPLETE Date: 03/12/20 CLINICAL DIAGNOSIS: TIA ECHOCARDIOGRAPHIC MEASUREMENTS (adult normal given) AC root (d.<3.7cm) 3.2 cm LV Septum d (<1.2 cm> 1.3 cm Valve Excursion 1.5 cm LV Septum (systole) 1.7 cm Left Atria (s.<4.0cm> 4.5 cm LVPW d(<1.2cm) 1.4 cm RV (d.<2.3cm) 4.1 cm LVPW (sytole) 1.9 cm LV diastole(<5.6CM) 4.8 cm MV E-F(>70mm/sec) cm LV systole 2.7 cm LVOT Diameter 1.6 cm MV exc.(>10mm) 1.4 cm Est.ejection fraction (50-75%) % DOPPLER: LVIT cm/sec A 97.0 cm/sec E 86.0 cm/sec LA cm/sec RVSP 34 mmHg LVOT 103 cm/sec AOP1/2T m/s Asc. Ao 128 cm/sec RVOT 88 cm/sec RA cm/sec PA 110 cm/sec AV Gradient Peak 6.51 mmHg AV Mean 3.82 mmHg AV Area 1.9 cm MV Gradient Peak 5.69 mmHg MV Mean 3.24 mmHg MV Area cm COMMENTS: Clinical Data Management Director: 2 NILSON JETER Pasteurizing Machine Operator: 3 Dr. Mccarthy TAPE# PACS Pericardial Effusion Y DATE OF SERVICE: Adequate 2D, color flow imaging, spectral Doppler, and M-Mode. LVH is present. LV internal dimension is normal. Wall motion is normal. EF is greater than or equal to 55%. Aortic valve is tricuspid. No evidence of stenosis by Doppler interrogation. Left atrium is dilated at 4.5 cm. Mitral valve shows no prolapse. Mild MR. Right-sided chambers are grossly normal. Trace TR. ECHOCARDIOGRAM REPORT [id number] DILLON MORENO TRANSINT:[id number] Voice Confirmation ID: [id number] DOCUMENT ID: [id number] JOSSIE VERGARA MD at 1122 CC: [id number] DICTATION DATE: 03/13/20 1008 TECHNICAL SERVICES ASSISTANT: 03/13/20 1505 ADM IN [facility] [address] [id number]
--- NOTE | 2020-03-14 11:22 | CN ---
PATIENT NAME:DILLON MORENO MEDICAL RECORD: [id number] : 48 LOCATION:D.[place] D.2120 ADMIT DATE: 03/12/20 ACCOUNT: [id number] CONSULTING PHYSICIAN: JOSSIE VERGARA MD REFERRING PHYSICIAN: SARWAT MOREIRA MD DATE OF CONSULTATION: 03/13/2020 HISTORY OF PRESENT ILLNESS: A 69-year-old female with a no known history of coronary artery disease. She has a history of vasculitis, treated with steroids intermittently a pulse dose up to a gram a day maintains 5 mg daily, admitted with dysarthria, this is second episode, unable to express words. 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 We are asked to see her concerning her cardiovascular status. PAST MEDICAL HISTORY: Includes; 1. History of vasculitis. 2. Hypertension. 3. Hyperlipidemia. MEDICATIONS: Include prednisone 5 mg p.o. daily, azathioprine 75 mgs bedtime, Requip 3 mg p.o. at bedtime, Neurontin 300 q.i.d., lisinopril 40 every day. ALLERGIES: SULFA. SOCIAL HISTORY: . Nonsmoker and nondrinker. No set exercise program. REVIEW OF SYSTEMS: The patient reports easy bruising but reports no swollen glands. The patient reports no fever, no night sweats, no significant weight gain, no significant weight loss. No significant exercise tolerance. The patient reports no dry eyes, no irritation, no vision change. Patient reports no difficulty hearing and no ear pain. Patient reports no frequent nose bleeds or nose and sinus problems. Patient reports on arm pain on exertion. No shortness of breath while lying down. No history of heart murmur. Patient reports no cough, no wheezing or coughing up blood. Patient reports no abdominal pain, no vomiting. Normal appetite. No diarrhea and not vomiting blood. No nausea and no constipation. Patient reports no incontinence. No difficulty urinating. No hematuria. No increased frequency. Patient reports no muscle aches. No weakness, no arthralgias, no back pain. No swelling of the extremities. Patient reports no abnormal mole, no jaundice, no rashes. Reports no loss of consciousness. No weakness and no numbness. No seizures, dizziness, or headaches. The patient reports no depression, no sleep disturbance, feeling safe in a relationship and no alcohol abuse. Patient reports on fatigue. Reports no runny nose or sinus pressure. No itching, no hives, and no frequent sneezing. PHYSICAL EXAMINATION: GENERAL: Pleasant female, in no acute distress, appears stated age. VITAL SIGNS: Blood pressure 150/77, pulse 85 and regular. HEENT: Normocephalic, atraumatic. NECK: No bruits are noted. HEART: Regular. Questionable S4. LUNGS: Good air excursion. ABDOMEN: Soft, nontender. EXTREMITIES: Pulses are 1+. There is no edema. CONSULT REPORT [id number] DILLON MORENO IMPRESSION: NSTEMI. Certainly could be given age, long-term steroid, hypertension, could be fixed obstructive disease, cannot exclude a microscopic vasculitis. Obviously, we will plan for angiography, intervention based on above. TRANSINT:[id number] Voice Confirmation ID: [id number] DOCUMENT ID: [id number] JOSSIE VERGARA MD at 1122 CC: [id number] DICTATION DATE: 03/13/2054 TECHNICAL SUPPORT SPECIALIST: 03/13/20 1346 ADM IN [facility] [address] [place] [address]
--- NOTE | 2020-03-14 11:22 | OP ---
PATIENT NAME: DILLON MORENO MEDICAL RECORD: [id number] :48 LOCATION:D.M2 D.0 ADMISSION DATE:03/12/20 SURGEON: JOSSIE VERGARA MD DATE OF OPERATION: 03/13/2020 PROCEDURE: Left heart catheterization, selective coronary angiography, right femoral artery approach. CATHETERS: A 5-Italian sheath, 5/4 left and right Karla, 5/4 pig. The procedure was well tolerated. The patient returned to miranda, sheath removed. ExoSeal device was placed. FINDINGS: Left ventriculography in 30-degree BRAY view: Normal wall motion and normal systolic function. CORONARY ANATOMY: LEFT MAIN: Left main is free of disease. LAD: Free of disease in the diagonal system. CIRCUMFLEX: Free of disease in the marginal system. RIGHT CORONARY ARTERY: Dominant artery, gives rise to PDA, free of disease. IMPRESSION: Normal left ventricular systolic function, normal coronary anatomy. Questionable given history of vasculitis and a small vessel disease on CT. She has intermittent microscopic embolic event. We will start with antiplatelet with clopidogrel 75 every day. TRANSINT:[id number] Voice Confirmation ID: [id number] DOCUMENT ID: [id number] JOSSIE VERGARA MD at 1122 CC: [id number] DICTATION DATE: 03/13/20 1054 HIGH LIFT DRIVER: 03/13/20 1541 ADM IN [facility] [address] [place] [address]
[2020-03-14 12:00] VITALS: BP 148/71
--- NOTE | 2020-03-14 14:13 | NUR ---
Nutrition Follow-up: Pt reports good appetite and ate fairly well this AM. Denies N/V/C/D, chewing/swallowing difficulties. Diet: Cardiac Wt: 230# (03/12) Last BM: 03/14 Labs reviewed Meds noted: Prednisone, Protonix, electrolyte protocol -Encourage PO intake and honor food preferences within diet restrictions. -Monitor wt. -RD following.
[2020-03-14 15:41] LABS: CHOL - HDL RATIO 2.5 ratio (2.3-4.1)
[2020-03-14 16:50] VITALS: BP 139/55
[2020-03-14 20:00] VITALS: BP 143/66
--- NOTE | 2020-03-14 20:07 | NUR ---
REPORT RECIEVED AND ROUNDING COMPLETE. PATIENT LAYING IN BED ON LOWEST LOCKED POSITION. A&O X4, AT BEDSIDE. LEFT WRIST PIV THAT IS SALINE LOCKED. PATIENT STATES SHE HAS NO NEEDS AT THIS TIME. CALL LIGHT WITHIN REACH AND BED IN LOWEST LOCKED POSITION.
[2020-03-15] VITALS: BP 123/61
[2020-03-15 04:00] VITALS: BP 149/80
[2020-03-15 06:57] LABS: CALC OSMOLALITY 279 mosm/kg (275-300); CALCIUM 8.7 mg/dL (8.5-10.1); CARBON DIOXIDE 32.1 mmol/L (21.0-32.0); CHLORIDE - SERUM 104 mmol/L (98-107); CREATININE - SERUM 0.8 mg/dL (0.6-1.3); GLUCOSE 101 mg/dL (74-106); MAGNESIUM - SERUM 1.9 mg/dL (1.8-2.4); PHOSPHOROUS 3.8 mg/dL (2.5-4.9); POTASSIUM - SERUM 3.7 mmol/L (3.5-5.1); SODIUM 140 mmol/L (136-145); UREA NITROGEN 14 mg/dL (7-18); eGFR NON AFRICAN AMERICAN 75 mL/min (90-120)
[2020-03-15 06:59] LABS: BASOPHILS 0.4 % (0-2); EOSINOPHILS 1.5 % (0-7); HEMATOCRIT 40.7 % (36.0-48.0); HEMOGLOBIN 12.7 g/dL (12-16); IMMATURE GRANULOCYTES 0.6 % (0-5); LYMPHOCYTES 14.4 % (15-50); MCH 31.2 pg (26.0-34.0); MCHC 31.2 g/dL (31.0-37.0); MEAN PLATELET VOLUME 9.2 fL (7.4-10.4); MONOCYTES 9.6 % (2-11); NEUTROPHILS 73.5 % (40-80); PLATELET COUNT 333 10x3/uL (130-400); RBC 4.07 10x6/uL (4.00-5.40); RDW 15.2 % (11.5-14.5); WBC 5.4 10x3/uL (4.8-10.8)
[2020-03-15 09:00] VITALS: BP 126/56
[2020-03-15 11:00] VITALS: BP 147/81
--- NOTE | 2020-03-15 11:45 | NUR ---
AMBULATES 350 FT WITH PT ASSIST. GAIT STEADY.
[2020-03-15 15:00] VITALS: BP 153/85
--- NOTE | 2020-03-15 15:53 | NUR ---
Rehab Note- Per PT EVAL, recommend home with home health services. Thank you for this referral! Mariella Casas RN Clinical Liaison, [facility] Rehab
--- NOTE | 2020-03-15 17:50 | NUR ---
OT NOTE: PT COMPLETED ADL MOB WITH HH A IN ROOM. PT COMPLETED STANDING BALANCE AT SINK WITH FUNCTIONAL ADL TASKS WITH SPV. PT COMPLETED ORAL HYGIENE TASKS WITH SPV AT SINK LEVEL. PT COMPLETED FUNCTIONAL TASKS WITH SPV. PT STATED SHE USES WALKER WHEN OUTSIDE THE HOME. [phone] THANK YOU,OSCAR PENN
[2020-03-15] MEDS ORDERED: PLAVIX75 MG PO (20:15)
[2020-03-15] MEDS ORDERED: ASPIRIN81 MG PO (20:20)
[2020-03-15 20:57] VITALS: BP 130/70
--- NOTE | 2020-03-15 21:29 | NUR ---
SHERLY REVIEWED AND SIGNED DISCHARGE INSTRUCTIONS. TOOK TO ER VIA WHEELCHAIR TO MEET SPOUSE. REMOVED PIV, CATH INTACT NO BELEEDING NOTED
== END 2020-03-15 21:30 | disposition home or self-care (01) | DRG 69 ==
LOC: OBSVTIME → D.ER 03:20 → D.OPS 03:20 → D.ER 05:56 → D.MS 05:56 → OBSVTIME 05:56 → D.MS 05:56 → D.ER 06:37 → EDSTATUS 09:20 → D.M2 12:55 → D.MS 12:55 → D.CVICU 03-13 10:53 → D.MS 03-13 10:53 → D.M2 03-13 10:53 → D.CVICU 03-13 17:33 → D.M2 03-15 21:30
PROVIDERS: Emergency Medicine; Family Medicine; Internal Medicine Interventional Cardiology; ADMIT Family Medicine; ATTEND Family Medicine
PROC: B2151ZZ Fluoroscopy of Left Heart using Low Osmolar Contrast (ICD-10-PCS; 2020-03-13)
PROC: 4A023N7 Measurement of Cardiac Sampling and Pressure, Left Heart, Percutaneous Approach (ICD-10-PCS; 2020-03-13)
PROC: B2111ZZ Fluoroscopy of Multiple Coronary Arteries using Low Osmolar Contrast (ICD-10-PCS; principal; 2020-03-13 10:00)
DX: G45.9 Transient cerebral ischemic attack, unspecified (principal); K57.92 Diverticulitis of intestine, part unspecified, without perforation or abscess without bleeding; I10 Essential (primary) hypertension; I73.9 Peripheral vascular disease, unspecified; E78.5 Hyperlipidemia, unspecified; I77.6 Arteritis, unspecified; G25.81 Restless legs syndrome; R40.2244 Coma scale, best verbal response, confused conversation, 24 hours or more after hospital admission; R40.2364 Coma scale, best motor response, obeys commands, 24 hours or more after hospital admission; R40.2134 Coma scale, eyes open, to sound, 24 hours or more after hospital admission

== ENCOUNTER → 2020-04-28 10:28 | Outpatient (CLI) | payer MEDICARE, OTHER ==
[~2020-04-28 10:28] MED LIST changes: +ASPIRIN81 MG PO; +CYANOCOBAL1000 MCG/4 SC; +PLAVIX75 MG PO; +[UNRECOGNIZED DRUG - OTHER]
== END | disposition home or self-care (01) ==
LOC: D.RAD 10:28
PROVIDERS: ATTEND Family Medicine
DX: R05 Cough (principal); K21.9 Gastro-esophageal reflux disease without esophagitis

== ENCOUNTER 2021-02-01 17:30 | Outpatient (CLI) | payer MEDICARE, OTHER ==
[2020-07-29 12:12] VITALS: BMI 42.1
[~2021-02-01 17:30] MED LIST changes: +LEVAQUIN750 MG PO; +ULTRAM50 MG PO
== END 2021-02-01 23:59 | disposition home or self-care (01) ==
LOC: D.MAMMO 17:30
PROVIDERS: ATTEND Family Medicine
DX: Z12.31 Encounter for screening mammogram for malignant neoplasm of breast (principal)